=== PATIENT | female | born 1950 | race Caucasian/White ===

== ENCOUNTER 2023-08-19 03:15 | Emergency (ER) | payer OTHER ==
[2023-08-19 04:13] LABS: Prothrombin Time 13.5 sec (12.0-14.7)
[2023-08-19 04:25] LABS: ALT (SGPT) 8 U/L (8-55); AST (SGOT) 18 U/L (5-34); Albumin 4.1 g/dL (3.4-4.8); Alkaline Phosphatase 60 U/L (40-110); Anion Gap 16 mmol/L (10-20); BUN (Urea Nitrogen) 17 mg/dL (9.8-20.1); Bilirubin, Total 0.3 mg/dL (0.2-1.2); Calc. Creatinine Clearance 0 mL/min (70-130); Calcium 9.4 mg/dL (7.8-10.44); Carbon Dioxide 20 mmol/L (23-31); Chloride 105 mmol/L (98-107); Estimated GFR 58; Globulin 2.5 g/dL (2.4-3.5); Glucose 117 mg/dL (83-110); Lipase 22 U/L (8-78); Potassium 3.5 mmol/L (3.5-5.1); Protein, Total 6.6 g/dL (5.8-8.1); Sodium 137 mmol/L (136-145)
[2023-08-19 04:28] LABS: Troponin I Less than 0.010 ng/mL (< 0.028)
[2023-08-19] MEDS ORDERED: Ondansetron PF 4 MG/2 ML Vial ONE (04:32)
[2023-08-19 04:54] LABS: BHCG - Serum Negative (NEGATIVE); Pregs Control Background? CLEAR/WHITE (CLR/WHITE); Pregs Control Bar Appear? YES (CONTROL BAR)
[2023-08-19 05:04] LABS: #Basophils 0.1 thou/uL (0.0-0.2); #Eosinphils 0.1 thou/uL (0.0-0.7); #Monocytes 0.4 thou/uL (0.11-0.59); #Neutrophils 1.4 thou/uL (1.40-6.50); %Basophils 1.3 % (0.0-1.0); %Eosinophils 1.8 % (0.0-10.0); %Lymphocytes 50.9 % (21.0-51.0); %Monocytes 10.9 % (0.0-10.0); %Neutrophils 34.8 % (42.0-75.0); Hematocrit 33.6 % (36.0-47.0); Hemoglobin 11.4 g/dL (12.0-16.0); Mean Corpuscular HGB CONC 33.9 g/dL (32.0-36.0); Mean Corpuscular Hemoglobin 32.9 pg (27.0-31.0); Mean Corpuscular Volume 97.1 fl (78.0-98.0); Mean Platelet Volume 10.1 fL (7.4-10.4); Platelet Count 255 10x3/uL (130-400); RBC Distribution Width 12.6 % (11.5-14.5); Red Blood Cell (RBC) Count 3.46 mill/uL (4.20-5.40); White Blood Cell (WBC) Count 3.9 10x3/uL (4.8-10.8)
== END 2023-08-19 06:11 | disposition home or self-care (01) ==
LOC: ERS 03:15
DX: R55 Syncope and collapse (principal); E78.5 Hyperlipidemia, unspecified; I12.9 Hypertensive chronic kidney disease with stage 1 through stage 4 chronic kidney disease, or unspecified chronic kidney disease; N18.9 Chronic kidney disease, unspecified
CPT/HCPCS: 36415; 70450; 71045; 72125; 80053; 82550; 83690; 83880; 84484; 84703; 85025; 85610; 85730; 93005; 96374; J2405